=== PATIENT | female | born 1980 | race Caucasian/White ===

== ENCOUNTER 2016-07-03 20:01 | Emergency (ER) | payer SELFPAY ==
[2016-07-03 20:02] VITALS: BMI 33.7
[2016-07-03 20:11] VITALS: BP 155/113; PULSE 72; RESP 17; TEMP 97.9; O2SAT 99
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
== END 2016-07-04 00:56 | disposition home or self-care (01) ==
LOC: H.ER 20:01
DX: O26.892 Other specified pregnancy related conditions, second trimester (principal); R10.9 Unspecified abdominal pain; Z3A.14 14 weeks gestation of pregnancy

== ENCOUNTER 2016-12-08 15:23 | Inpatient (IN) | payer MEDICAID, SELFPAY ==
[2016-12-08 15:55] VITALS: BMI 38.7
[2016-12-08] MEDS: Lactated Ringer's 1,000 ML IV SCH (16:00)
[2016-12-08 16:23] LABS: BASO % 0.5 % (0.0-2.0); EOS % 0.6 % (0.0-4.0); HEMATOCRIT 38.4 % (34.0-47.0); LYMPH # 1.8 K/uL (1.0-4.3); LYMPH % 23.9 % (20.0-40.0); MEAN CELL VOLUME 86.9 fl (81.0-99.0); MEAN CORPUSCULAR HEMOGLOBIN 28.5 pg (27.0-31.0); MEAN CORPUSCULAR HGB CONC 32.8 g/dL (33.0-37.0); MONO # 0.6 K/uL (0.0-0.8); MONO % 7.9 % (0.0-10.0); NEUT % 67.1 % (50.0-75.0); RED CELL DISTRIBUTION WIDTH 14.5 % (11.5-14.5); WHITE BLOOD COUNT 7.5 K/uL (4.8-10.8)
--- NOTE | 2016-12-08 17:39 | OBADHP ---
Datetime: 12/08/2016 16:30 Admit Comment, IP Provider: CC: Pt sent from clinic for cholecystasis in for IOL HPI: 36 yo at 38.3 wks GA with EDC by US (first on 07/15/2016) +: FM; -: ROM, VB, CTX Last US: 12/02/2016 Last visit 12/08/2016 GBS positive Pt presented to the outpatient clinic; Dx with cholecystasis of : AST:46; ALT: 100; Bile Acid: 17; Past OBHX: 2015 40 wk F NVD; 2013 40wk F ; 2005 40wk M ; 1997 40 F ; past gyne: STI: denies; pap: 06/21/2016: neg pmhx: none psurghx: none Soc: denies: smoking, alcohol, illicit drugs Rx: PNV Allergies: NKDA Vitals: 121/70 80 bpm 100% RA PE: General: pleasant HEENT: normocephalic, PERRLA; AAOx3 Heart: no murmurs, regular rate and rhythm, S1, S2 normal. Lungs: clear to auscultation bilaterally, no wheezing Abdomen: nontender, gravid CVA: negative Lower extremities: negative for pitting edema Pelvic exam: no vaginal bleed or pooling of amniotic fluid in vaginal canal; Cervix closed and cristian g, high and -4 station Bedside ultrasound: Fetus in vertex position Monitor: Moderate variability; Accel: 15x15; no decels; FHR: 150 Assessment: 36 yo F AMA IUP at 38.3 weeks GA via US 07/15/2016 Cholestasis of : AST: 46 ALT:100 Bile Acid: 17 24 hr urine protein 10/15: 390 GBS: POSITIVE no known allergy to PCN Plan: Admit to L_D; T_S, LR, CBC; IOL due to cholestasis in ; PCN ordered for GBS Intravenous access, Monitoring, Monitor Labor progress, Discussion about her condition inclu ding labor, delivery, induction with cervidil, pain management, and care. case d/w Dr. Jonathan MACHADO PGY1 WET WHEELER addendum: Patient seen and examined by me with Dr. Machado. Patient discussed with Dr. Ace and Dr. Mena. Induction. Induction procedure discussed with patient. Pelvic Type - PN: Adequate Extremities - PN: Normal Abdomen - PN: Normal Back - PN: Normal Breast - PN: Normal Lungs - PN: Normal Heart - PN: Normal Thyroid - PN: Not Done Neurologic - PN: Normal HEENT - PN: Normal General - PN: Normal FHR - Baseline A Provider: 150 Membranes, Provider: Ruptured Vital Signs Provider: Reviewed; Within Normal Limits IP Chief Complaint: Scheduled induction of labor; Other NICHD Variability Prov Fetus A: Moderate 6-25bpm NICHD Accel Fetus A IP Provider: 15X15 FHR Category Provider Fetus A: Category I NICHD Decel Fetus A IP Provider: None Dilatation, Provider: 0 Effacement, Provider: 0 Station, Provider: -4 Genitourinary Exam: Normal DTRs - PN: Not Done IP Adm Impression: Term, intrauterine ; No Active Labor; Intact Membranes IP Admit Plan: Admit to unit
[2016-12-08 19:01] VITALS: O2SAT 100
--- NOTE | 2016-12-08 20:13 | OBHP ---
Datetime: 12/08/2016 18:00 FHR - Baseline A Provider: 150 Vital Signs Provider: Reviewed; Within Normal Limits NICHD Variability Prov Fetus A: Moderate 6-25bpm NICHD Accel Fetus A IP Provider: 15X15 FHR Category Provider Fetus A: Category I NICHD Decel Fetus A IP Provider: None Dilatation, Provider: 0 Effacement, Provider: 0 Station, Provider: -4 Datetime: 12/08/2016 16:30 IP Adm Impression: Term, intrauterine ; No Active Labor; Intact Membranes IP Admit Plan: Admit to unit Pelvic Type - PN: Adequate Extremities - PN: Normal Abdomen - PN: Normal Back - PN: Normal Breast - PN: Normal Lungs - PN: Normal Heart - PN: Normal Thyroid - PN: Not Done Neurologic - PN: Normal HEENT - PN: Normal General - PN: Normal Membranes, Provider: Yana EGA AdmitDate IP: 38.3 IP Indication for Induction: Other IP Indication for Induction Oth: cholestasis of IP Chief Complaint: Scheduled induction of labor; Other Genitourinary Exam: Normal DTRs - PN: Not Done Datetime: 12/08/2016 16:15 Admit Comment, IP Provider: DIRECT ADMISSION CC: Pt sent from clinic for cholecystasis in for IOL HPI: 36 yo at 38.3 wks GA with EDC by US (first on 07/15/2016) +: FM; -: ROM, VB, CTX Last US: 12/02/2016 Last visit 12/08/2016 GBS positive Pt presented to the outpatient clinic; Dx with cholecystasis of : AST:46; ALT: 100; Bile Acid: 17; Past OBHX: 2015 40 wk F NVD; 2013 40wk F ; 2005 40wk M ; 1997 40 F ; past gyne: STI: denies; pap: 06/21/2016: neg pmhx: none psurghx: none Soc: denies: smoking, alcohol, illicit drugs Rx: PNV Allergies: NKDA Vitals: 121/70 80 bpm 100% RA PE: General: pleasant HEENT: normocephalic, PERRLA; AAOx3 Heart: no murmurs, regular rate and rhythm, S1, S2 normal. Lungs: clear to auscultation bilaterally, no wheezing Abdomen: nontender, gravid CVA: negative Lower extremities: negative for pitting edema Pelvic exam: no vaginal bleed or pooling of amniotic fluid in vaginal canal; Cervix closed and cristian g, high and -4 station Bedside ultrasound: Fetus in vertex position Monitor: Moderate variability; Accel: 15x15; no decels; FHR: 150 Assessment: 36 yo F AMA IUP at 38.3 weeks GA via US 07/15/2016 Cholestasis of : AST: 46 ALT:100 Bile Acid: 17 24 hr urine protein 10/15: 390 GBS: POSITIVE no known allergy to PCN Plan: Admit to L_D; T_S, LR, CBC; IOL due to cholestasis in case d/w Dr. Jonathan MACHADO PGY1 OB H addendum: Patient seen and examined by me with Dr. Machado. Dr. Ace discussed patient with me and stated Dr. Puente be recommended induction of labor due to cholestasis of Presentation-Admit: Vertex Contraction Comments Provider: no
--- NOTE | 2016-12-08 20:16 | OBPN ---
Datetime: 12/08/2016 18:00 IP Progress Impression: Normal progression of labor IP Progress Plan: Continue present management; Induction FHR - Baseline A Provider: 150 IP Progress Note Comment: Examined pt at bedside. Cervidil placed posterior cervix. Instructed pt to not extract cervidil. Notified pt that plan is to remove in 12 hours and reexamine cervix. Continue LR. Normal progression of labor. BUTT, PGY1 OBH: bEGIN Pcn G when in active labor Vital Signs Provider: Reviewed; Within Normal Limits NICHD Accel Fetus A IP Provider: 15X15 FHR Category Provider Fetus A: Category I NICHD Variability Prov Fetus A: Moderate 6-25bpm Dilatation, Provider: 0 Effacement, Provider: 0 Station, Provider: -4 NICHD Decel Fetus A IP Provider: None Datetime: 12/08/2016 16:30 Membranes, Provider: Ruptured Datetime: 12/08/2016 16:15 Contraction Comments Provider: no Presentation-Admit: Vertex
[2016-12-09] MEDS: Lactated Ringer's 1,000 ML IV SCH ×3 (00:19→16:00)
[2016-12-09] MEDS ORDERED: Nalbuphine 20 mg/ml Inj (1 ml) IVP PRN (02:26)
--- NOTE | 2016-12-09 07:06 | OBPN ---
Datetime: 12/09/2016 02:09 IP Progress Impression: Normal progression of labor IP Procedures: Sterile Vag Exam IP Progress Plan: Continue present management FHR - Baseline A Provider: 150 Gestation - Est Wks by US: 38.4 Presentation-Admit: Vertex IP Progress Note Comment: Patient reports contractions q2-3 min with pain scale of 6-7/10. Reports c ontractions are tolerable and does not want pain medication at this time. Denies pruritus, nausea, we akness, SOB or chest pain. -SVE: 0/0/-3; cervidil in place -will re-evaluate at 6am and remove cervidil at that time Theresa Aguila M.D. PGY2 Vital Signs Provider: Reviewed; Within Normal Limits NICHD Accel Fetus A IP Provider: 15X15 FHR Category Provider Fetus A: Category I NICHD Variability Prov Fetus A: Moderate 6-25bpm Dilatation, Provider: 0 Effacement, Provider: 0 Station, Provider: -3 NICHD Decel Fetus A IP Provider: None
[2016-12-09] MEDS ORDERED: Penicillin G 5 Million Unit Vial IVPB ONE (07:56)
[2016-12-09] MEDS ORDERED: Oxytocin 30 units/LR 500ML 30 U/500 ML BAG IV ONE ×2 (12:23→15:50)
[2016-12-09] MEDS ORDERED: Fentanyl/Bupivacaine HCl 250 ML EPI ONE (14:45)
[2016-12-09] MEDS ORDERED: Bupivacaine HCl 0.25% PF (10 ml) Inj ONE (14:45)
[2016-12-09] MEDS ORDERED: Lidocaine 1% Inj (20ml) ONE (20:02)
[2016-12-10 07:19] LABS: HEMATOCRIT 36.5 % (34.0-47.0); MEAN CORPUSCULAR HEMOGLOBIN 28.7 pg (27.0-31.0); MEAN CORPUSCULAR HGB CONC 32.6 g/dL (33.0-37.0); RED CELL DISTRIBUTION WIDTH 14.9 % (11.5-14.5); WHITE BLOOD COUNT 10.8 K/uL (4.8-10.8)
--- NOTE | 2016-12-10 07:26 | OBPPN ---
Datetime: 12/10/2016 06:39 PP Pain Prov: Within normal limits PP Nausea Prov: Denies PP Flatus Prov: No PP BM Prov: No PP Heart Prov: Normal PP Lungs Prov: Normal PP Abdomen/Uterus Prov: Normal PP Lochia Prov: Normal PP Extremities Prov: Normal PP C/S Incision Prov: Not Applicable PP Progress Prov: Normal PP Impression Prov: Normal progression PP Plan Prov: Continue present management PP Progress Note Prov: PPD 1 Patient seen and examined at bedside. Denies nausea, vomiting, weakness, dizziness or pruritus. Hicks s normal urine output, tolerating PO diet, pain managed with medication. 10-15 min each breast. O: VSS Lungs: CTABL Cardiac: S1 S2 normal, RRR Abd: mild diffuse tenderness to palpation Ext: no edema, full ROM A: 36 yr PPD 1 , normal post progression P: Continue with present management -pain control with medication -encourage ambulation -regular diet -f/u DK Aguila M.D. PGY2 OB Hospitalist Addendum: PPD 1 s/p , doing well, breast feeding Continue current management (ES) Vital Signs Provider PP: Reviewed; Within Normal Limits
[2016-12-10] MEDS ORDERED: Influenza Vaccine 18yr & older 0.5 ML/45 MCG SYR IM ONE (11:00)
--- NOTE | 2016-12-10 12:52 | OBDS ---
DELIVERY PERSONNEL Delivery Doctor: Poncho Denny MD Work Force Advisor: Nettie Atkins RN Anesthesiologist: Aleyda Madrid MD Resident: Aleyda Aguila OBR MATERNAL INFORMATION Delivery Anesthesia: Local; Epidural Medications in Delivery: Pitocin Estimated Blood Loss (ml): 150 Placenta Cultured: No Maternal Complications: None Provider Comments: Normal spontaneous vaginal delivery. Patient delivered viable female with Apgars of 9 and 9 at one and 5 minutes respectively. P lacenta delivered spontaneously. Laceration repaired, as above. Uterus firm and appropriately hemosta tic following delivery. Patient tolerated delivery and repair well. Estimated blood loss 200 mL LABOR SUMMARY EDC: 12/19/2016 00:00 No. Babies in Womb: 1 Attempted: No Labor Anesthesia: Epidural LABOR INFORMATION Reason for Induction: Other Reason for Induction Other: Cholestasis of Onset of Labor: 12/09/2016 18:45 Complete Dilatation: 12/09/2016 21:05 Cervical Ripening Agents: Cervidil (Annotations: fell off . made aware) Oxytocin: Augmentation Group B Beta Strep: Positive Antibiotics # of Doses: 2 Antibiotics Time of Last Dose: 1900 Steroids Given: None Reason Steroids Not Administered: Not Applicable MEMBRANES Membranes Rupture Method: Artificial Rupture of Membranes: 12/09/2016 21:22 Length of Rupture (hrs): 0.02 Amniotic Fluid Color: Clear Amniotic Fluid Amount: Small Amniotic Fluid Odor: Normal STAGES OF LABOR Stage 1 hrs: 2 Stage 1 min: 20 Stage 2 hrs: 0 Stage 2 min: 18 Stage 3 hrs: -167 Stage 3 min: -50 Total Time in Labor hrs: -165 Total Time in Labor min: -12 VAGINAL DELIVERY Episiotomy: None Laceration Extension: First Degree Laceration Type: Vaginal Laceration Repair: Yes Laceration Repair Note: First-degree perineal laceration. Area infiltrated with 1% lidocaine. Lacera tion. With 2. 0 repeat without complication. Patient tolerated well. Initial Vag Sponge Count: 5 Final Vag Sponge Count: 5 Initial Vag Sharps Count: 2 Final Vag Sharps Count: 2 Sponge Count Correct: Yes Sharps Count Correct: Yes Count Comment: count correct BABY A INFORMATION Delivery Date/Time: 12/09/2016 21:23 Method of Delivery: Vaginal Born in Route : No : N/A Forceps: N/A Vacuum Extraction: N/A Shoulder Dystocia : No SHOULDER DYSTOCIA BABY A Delivery Date/Time: 12/09/2016 21:23 PRESENTATION/POSITION BABY A Presentation: Cephalic Cephalic Presentation: Vertex PLACENTA INFORMATION BABY A Placenta Delivery Time : 12/02/2016 21:33 Placenta Method of Delivery: Spontaneous Placenta Status: Delivered SCORES BABY A Heart Rate 1 min: >100 bpm Resp Effort 1 min: Good Cry Reflex Irritability 1 min: Cough or Sneeze or Pulls Away Muscle Tone 1 min: Active Motion Color 1 min: Body [place], Extremities Blue Resuscitation Effort 1 min: Tactile Stimulation SCORE 1 MIN: 9 Heart Rate 5 min: >100 bpm Resp Effort 5 min: Good Cry Reflex Irritability 5 min: Cough or Sneeze or Pulls Away Muscle Tone 5 min: Active Motion Color 5 min: Body [place], Extremities Blue Resuscitation Effort 5 min: N/A SCORE 5 MIN: 9 INFANT INFORMATION BABY A Gestational Age at Delivery: 38.4 Gestational Status: Term Outcome : Liveborn Condition : Stable Infant Sex: Male IDENTIFICATION/MEDS BABY A ID Band Number: [id number] ID Band Location: Left Leg; Left Arm WEIGHT/LENGTH BABY A Infant Birthweight (gms): 3155 Weight (lb): 6 Weight (oz): 15 CORD INFORMATION BABY A No. Cord Vessels: 3 Nuchal Cord : N/A Nuchal Cord Other: n/a True Knot: n/a Infant Cord pH Baby Arterial: n/a Infant Cord pH Baby Venous: n/a Cord Blood Taken: Yes Banking/Donate Info: n/a Suction: None
[2016-12-11 08:30] LABS: BILIRUBIN,TOTAL 0.2 mg/dl (0.2-1.3); TOTAL PROTEIN 5.9 G/DL (6.3-8.2)
[2016-12-11] MEDS ORDERED: PRENATAL VITAMINS PO SCH (09:00)
[2016-12-11] MEDS ORDERED: Prenatal Multivit/Folic Acid/Iron Tab PO SCH (09:00)
--- NOTE | 2016-12-11 10:30 | OBDCSUM ---
Datetime: 12/11/2016 06:29 Discharged to, Provider: Home Follow up at, Provider: [facility] Disch Instr Activity: Normal activity Disch Instr Diet: Regular Discharge Instructions, Provider: Routine instructions given Discharge Diagnosis, Provider: Term Delivered Discharge Time: 12/11/2016 06:29 Follow up in weeks, Provider: 6 weeks Disch Referrals: None Contraception discussed, Prov: Yes Disch Activity Restrictions: No sexual activity; Nothing in vagina - [place], tampons, douche Discharge Comment, Provider: 36 y/o now @ 38.4 wks had cholestasis of w/ IOL at term w/ no risk factors Delivered baby boy on 12/09/2016 @21:23, 3155 g, : 9,9 Encourage PNV 1 tab PO once daily Ibuprofen 600 mg 1 tab PO Q6h prn for moderate pain Senokot 17.2 mg tab PO QHS nothing in vagina, if excessive bleeding or fever without relief from Tylenol go to ED F/U w/ [facility] in 6 weeks Everardo Madera M.D. Laboratory Asst PGY-1 Contraception after Delivery: Foam/Condoms
--- NOTE | 2016-12-11 10:30 | OBPPN ---
Datetime: 12/11/2016 06:27 PP Pain Prov: Within normal limits PP Nausea Prov: Denies PP Flatus Prov: Yes PP BM Prov: Yes PP Breasts Prov: Normal PP Heart Prov: Normal PP Lungs Prov: Normal PP Abdomen/Uterus Prov: Normal PP Lochia Prov: Normal PP Vulva/Perineum Prov: Not Done PP CVA Tenderness Prov: Normal PP Extremities Prov: Normal PP C/S Incision Prov: Not Applicable PP Progress Prov: Normal PP Comments Phys Exam Prov: nonengorged PP Impression Prov: Normal progression PP Plan Prov: Continue present management; Discharge PP Progress Note Prov: 36 y/o now seen and examined at bedside. Patient had uneventful overnig ht. Patient reports mild pelvic pain controlled w/ pain meds. OOB/Ambulating w/o dizziness. Breast /bottle feeding w/o difficulty. Tolerating PO diet well. Lochia is less than menses in volume. Voi ding freely w/ no blood noted. Reports bowel movement. Denies fevers, chills, n/v/d, CP/SOB, lighth eadedness and calf pain. PE: GEN: A_O, resting comfortably in bed, NAD Lung: CTA B/L, no wheezing, rhonchi, or rales CVS: S1, S2 wnl, RRR Abd: +BS, firm fundus below umbilicus. EXT: no edema, negative Vance's, calves non-tender Assessment: 36 y/o now s/p on 12/09/2016 @ 21:23 tolerating pain w/ medication, tolerati ng oral intake, adequate urine output, doing well on PPD2. Plan: Percocet 5/325 mg 1-2 tabs PO Q6h prn for mod/severe pain. Ibuprofen 600 mg 1 tab Q6h PO pr n for mild pain. Encourage breast feeding and ambulation. D/C today 12/11/2016 Everardo Madera M.D. Hand Stamper PGY-1 obh addendum: pt seen _ examined by me. agree with above assessment andplan. IP PP Procedures: None Vital Signs Provider PP: Reviewed; Within Normal Limits
[2016-12-11 18:32] VITALS: BP 110/51; PULSE 64; RESP 19; TEMP 98
[2016-12-14 02:06] LABS: BILE ACIDS, TOTAL 9 umol/L (0-19)
== END 2016-12-11 13:25 | disposition home or self-care (01) | DRG 775 ==
LOC: H.EROB2 15:23 → H.NURSERY 15:44 → H.L&D 15:53 → H.OB/GYN 12-09 23:55
PROVIDERS: ADMIT Obstetrics & Gynecology; ATTEND Obstetrics & Gynecology
PROC: 0HQ9XZZ Repair Perineum Skin, External Approach (ICD-10-PCS; principal; 2016-12-08)
PROC: 10E0XZZ Delivery of Products of Conception, External Approach (ICD-10-PCS; 2016-12-08)
PROC: 4A1HXCZ Monitoring of Products of Conception, Cardiac Rate, External Approach (ICD-10-PCS; 2016-12-08)
DX: O26.62 Liver and biliary tract disorders in childbirth (principal); K83.1 Obstruction of bile duct; O70.0 First degree perineal laceration during delivery; Z37.0 Single live birth; O99.824 Streptococcus B carrier state complicating childbirth; Z3A.38 38 weeks gestation of pregnancy